=== PATIENT | male | born 1975 | race Caucasian/White ===

== ENCOUNTER 2017-11-08 16:12 | Emergency (ER) | payer MEDICAID, OTHER ==
[2017-11-08] MEDS: NICARDipine HCL 30 MG CAPSULE PO (16:46)
== END 2017-11-08 17:34 | disposition home or self-care (01) ==
LOC: E/R 16:12
DX: I16.0 Hypertensive urgency (principal); E11.9 Type 2 diabetes mellitus without complications
CPT/HCPCS: 99283; Z7502